=== PATIENT | female | born 1930 | race African-American/Black ===

== ENCOUNTER 2019-06-07 00:11 | Emergency (ER) | payer MEDICARE ==
[~2019-06-07] VITALS: Ht 157.5 cm; Wt 74.8 kg
[~2019-06-07 00:11] MED LIST: BIMA2.5D OP; CLON0.5T20 PO; FAMO20TA5 PO; HYDR12.575 PO; HYDR1TAB20 PO; TIMO5SOL10 OP; URSO300C26 PO
[2019-06-07 00:37] LABS: BILIRUBIN,URINE NEGATIVE (NEG); CLARITY,URINE CLOUDY; COLOR,URINE YELLOW; NITRITE,URINE NEGATIVE (NEG); PH,URINE 5.5; PROTEIN,URINE 100 mg/dL (NEG-TRACE); UROBILINOGEN,URINE 0.2 mg/dL (0.2 mg/dL)
[2019-06-07 00:41] LABS: RBC,URINE OCC /HPF (0-2)
[2019-06-07 00:42] LABS: BACTERIA,URINE MANY /HPF (0-FEW); HYALINE CASTS, URINE FEW /HPF; SQUAMOUS EPITHELIAL CELL,UR MANY /LPF; WBC,URINE TNTC /HPF (0-4)
[2019-06-07 00:48] LABS: BASO % 1 % (0-3); EOS # 0.1 x10^3/uL (0.0-0.7); EOS % 3 % (0-3); HEMATOCRIT 37.1 % (36.0-47.0); HEMOGLOBIN 12.4 g/dL (12.0-15.5); LYMPH # 0.6 x10^3/uL (1.0-4.8); LYMPH % 12 % (24-48); MEAN CORPUSCULAR HEMOGLOBIN 31 pg (25-35); MEAN CORPUSCULAR HGB CONC 33 g/dL (31-37); MEAN CORPUSCULAR VOLUME 92 fL (79-100); MONO # 0.5 x10^3/uL (0.0-1.1); MONO % 11 % (0-9); NEUT # 3.5 x10^3/uL (1.8-7.7); NEUT % 73 % (31-73); PLATELET COUNT 219 x10^3/uL (140-400); RED BLOOD COUNT 4.05 x10^6/uL (3.50-5.40); RED CELL DISTRIBUTION WIDTH 14.1 % (11.5-14.5); WHITE BLOOD COUNT 4.8 x10^3/uL (4.0-11.0)
--- NOTE | 2019-06-07 00:56 | PHYS DOC ---
Past Medical History Past Medical History: Cancer, Hypertension Additional Past Medical Histor: COLON CA Past Surgical History: Colectomy Additional Past Surgical Histo: INTESTIONAL MESH Additional Information: Nonsmoker Alcohol Use: None Drug Use: None Adult General Chief Complaint Chief Complaint: ABDOMINAL PAIN HPI HPI 88 y/o female presents with history of intermittent epigastric pain and nausea x 2 days. Reports has had similar episodes in the past which typically "go away". Denies fever/chills. Denies trauma. Review of Systems Review of Systems Constitutional: Denies fever or chills Eyes: Denies redness or eye pain HENT: Denies nasal congestion or sore throat Respiratory: Denies cough or shortness of breath Cardiovascular: Denies chest pain or palpitations GI: Reports abdominal pain and nausea; denies vomiting : Denies dysuria or hematuria Musculoskeletal: Denies back pain or joint pain Integument: Denies rash or skin lesions Neurologic: Denies headache, focal weakness or sensory changes Complete systems were reviewed and found to be within normal limits, except as documented in this note. Current Medications Current Medications Current Medications Medications (Trade) Dose Ordered Sig/Gustavo Start Time Stop Time Status Last Admin Dose Admin Ceftriaxone Sodium (Rocephin) 1 gm 1X ONCE 06/07/19 03:00 06/07/19 03:01 DC 06/07/19 02:43 1 GM Famotidine (Pepcid Vial) 20 mg 1X ONCE 06/07/19 01:00 06/07/19 01:01 DC 06/07/19 00:48 20 MG Ondansetron HCl (Zofran) 4 mg 1X ONCE 06/07/19 01:00 06/07/19 01:01 DC 06/07/19 00:48 4 MG Sodium Chloride 1,000 ml @ 1,000 mls/hr 1X ONCE 06/07/19 01:00 06/07/19 01:59 DC 06/07/19 00:48 1,000 MLS/HR Allergies Allergies Allergies Coded Allergies Type Severity Reaction Last Updated Verified iodine Allergy Intermediate Itching 07/26/13 Yes Physical Exam Physical Exam Constitutional: Well developed, well nourished, no acute distress, non-toxic appearance HENT: Normocephalic, atraumatic, oropharynx moist Eyes: Conjunctiva normal, no discharge Neck: Normal range of motion, no tenderness, supple Cardiovascular: Heart rate normal, regular rhythm Lungs & Thorax: Bilateral breath sounds clear to auscultation, no wheezing Abdomen: Soft, mild epigastric tenderness Skin: Warm, dry, no erythema, no rash Back: No tenderness, no CVA tenderness Extremities: No tenderness, ROM intact, no edema Neurologic: Alert and oriented X 3, normal motor function, normal sensory function, no focal deficits noted Psychologic: Affect normal, judgement normal, mood normal Current Patient Data Vital Signs Vital Signs Date Time Temp Pulse Resp B/P (MAP) Pulse Ox O2 Delivery O2 Flow Rate FiO2 06/07/19 02:44 68 16 166/82 (110) 95 Room Air 06/07/19 00:14 97.7 97.7 Lab Values Laboratory Tests Test 06/07/19 00:05 06/07/19 00:17 06/07/19 01:35 White Blood Count 4.8 x10^3/uL (4.0-11.0) Red Blood Count 4.05 x10^6/uL (3.50-5.40) Hemoglobin 12.4 g/dL (12.0-15.5) Hematocrit 37.1 % (36.0-47.0) Mean Corpuscular Volume 92 fL (79-100) Mean Corpuscular Hemoglobin 31 pg (25-35) Mean Corpuscular Hemoglobin Concent 33 g/dL (31-37) Red Cell Distribution Width 14.1 % (11.5-14.5) Platelet Count 219 x10^3/uL (140-400) Neutrophils (%) (Auto) 73 % (31-73) Lymphocytes (%) (Auto) 12 % (24-48) L Monocytes (%) (Auto) 11 % (0-9) H Eosinophils (%) (Auto) 3 % (0-3) Basophils (%) (Auto) 1 % (0-3) Neutrophils # (Auto) 3.5 x10^3/uL (1.8-7.7) Lymphocytes # (Auto) 0.6 x10^3/uL (1.0-4.8) L Monocytes # (Auto) 0.5 x10^3/uL (0.0-1.1) Eosinophils # (Auto) 0.1 x10^3/uL (0.0-0.7) Basophils # (Auto) 0.0 x10^3/uL (0.0-0.2) Prothrombin Time 13.1 SEC (11.7-14.0) Prothrombin Time INR 1.0 (0.8-1.1) Activated Partial Thromboplast Time 26 SEC (24-38) Lactic Acid Level 1.2 mmol/L (0.4-2.0) Urine Collection Type Unknown Urine Color Yellow Urine Clarity Cloudy Urine pH 5.5 Urine Specific Bent 1.020 Urine Protein 100 mg/dL (NEG-TRACE) Urine Glucose (UA) Negative mg/dL (NEG) Urine Ketones (Stick) Negative mg/dL (NEG) Urine Blood Large (NEG) Urine Nitrite Negative (NEG) Urine Bilirubin Negative (NEG) Urine Urobilinogen Dipstick 0.2 mg/dL (0.2 mg/dL) Urine Leukocyte Esterase Large (NEG) Urine RBC Occ /HPF (0-2) Urine WBC Tntc /HPF (0-4) Urine Squamous Epithelial Cells Many /LPF Urine Bacteria Many /HPF (0-FEW) Urine Hyaline Casts Few /HPF Urine Mucus Mod /LPF Sodium Level 141 mmol/L (136-145) Potassium Level 3.7 mmol/L (3.5-5.1) Chloride Level 108 mmol/L (98-107) H Carbon Dioxide Level 23 mmol/L (21-32) Anion Gap 10 (6-14) Blood Urea Nitrogen 15 mg/dL (7-20) Creatinine 1.0 mg/dL (0.6-1.0) Estimated GFR (Cockcroft-Gault) 63.5 BUN/Creatinine Ratio 15 (6-20) Glucose Level 101 mg/dL (70-99) H Calcium Level 8.6 mg/dL (8.5-10.1) Magnesium Level 1.8 mg/dL (1.8-2.4) Total Bilirubin 0.3 mg/dL (0.2-1.0) Aspartate Amino Transferase (AST) 18 U/L (15-37) Alanine Aminotransferase (ALT) 16 U/L (14-59) Alkaline Phosphatase 81 U/L (46-116) Creatine Kinase 94 U/L (26-192) Creatine Kinase MB (Mass) 1.0 ng/mL (0.0-3.6) Creatine Kinase MB Relative Index 1.1 % (0-4) Troponin I Quantitative < 0.017 ng/mL (0.000-0.055) Total Protein 7.5 g/dL (6.4-8.2) Albumin 2.9 g/dL (3.4-5.0) L Albumin/Globulin Ratio 0.6 (1.0-1.7) L Lipase 117 U/L (73-393) Laboratory Tests 06/07/19 00:05 Laboratory Tests 06/07/19 01:35 EKG EKG @0056 NSR at 66bpm with arrhythmia, NO ST elevation, baseline artifact Radiology/Procedures Radiology/Procedures PROCEDURE: CT ABDOMEN PELVIS WO CONTRAST Abdominal and Pelvis CT, Without Contrast: History: Epigastric pain nausea and vomiting Comparison: None. Procedure: Axial images are obtained of the abdomen and pelvis, without IV or oral contrast. Oral Contrast: No Findings: Evaluation of solid organs is limited without contrast. Evaluation of stomach and bowel is limited without oral contrast. There are stones the gallbladder without wall thickening or surrounding inflammation. 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 Spleen: Normal. Pancreas: Normal. Adrenal Glands: Normal. Kidneys: Normal. There is no free air or free fluid. There is no lymphadenopathy. The urinary bladder is collapsed. There is no pericolonic inflammation identified. Impression: Cholelithiasis without evidence of acute cholecystitis. No acute findings. End impression PQRS Compliance Statement: One or more of the following individualized dose reduction techniques were utilized for this examination: 1. Automated exposure control 2. Adjustment of the mA and/or kV according to patient size 3. Use of iterative reconstruction technique Electronically signed by: Jamarcus Bender III, MD (06/07/2019 1:28 AM) [facility] Course & Med Decision Making Course & Med Decision Making Pertinent Labs and Imaging studies reviewed. (See chart for details) Patient presents with report of epigastric pain which has been worse over the last 2 days but of which patient has had similar episodes over the last 2 years. Symptomatic treatment provided. Labs obtained and posted to chart. UA with signs of infection. Empiric antibiotics given. EKG stable. CT abd/pelvis with cholelithiasis noted. Patient stable for discharge with outpatient follow-up with PCP/GI. GI referral provided. Discussed findings and plan with patient and family, who acknowledge understanding and agreement. Dragon Disclaimer Dragon Disclaimer This electronic medical record was generated, in whole or in part, using a voice recognition dictation system. Departure Departure Impression: Primary Impression: Epigastric abdominal pain Additional Impressions: Cholelithiasis UTI (urinary tract infection) Disposition: 01 HOME, SELF-CARE Condition: STABLE Referrals: REECE CHILDERS (PCP) CARLOS LECHUGA MD Patient Instructions: Abdominal Pain, [id number], Cholelithiasis, Ea sy-to-Read, Urinary Tract Infection, [id number] Scripts Ondansetron (ONDANSETRON ODT) 4 Mg Tab.rapdis 1 TAB PO PRN Q6-8HRS PRN for NAUSEA, #16 TAB Prov: COTY MATAT DO 06/07/19 Cephalexin (KEFLEX) 500 Mg Capsule 500 MG PO TID for 7 Days, #21 CAP Prov: COTY MATTA DO 06/07/19 Problem Qualifiers Additional Impressions: Cholelithiasis Cholelithiasis location: gallbladder Cholecystitis presence: without cholecystitis Biliary obstruction: without biliary obstruction Qualified Codes: K80.20 - Calculus of gallbladder without cholecystitis without obstruction UTI (urinary tract infection) Urinary tract infection type: acute cystitis Hematuria presence: without hematuria Qualified Codes: N30.00 - Acute cystitis without hematuria COTY MATTA DO Jun 07, 2019 00:56
[2019-06-07 00:58] LABS: PROTHROMBIN TIME PATIENT 13.1 SEC (11.7-14.0)
[2019-06-07] MEDS ORDERED: ONDANSETRON PF 4 MG/2 ML VIAL. IV ONE (01:00)
[2019-06-07] MEDS ORDERED: IV NORMAL SALINE 1000ML BAG 1,000 ML IV ONE (01:00)
[2019-06-07] MEDS ORDERED: FAMOTIDINE 20 MG/2 ML VIAL IVP ONE (01:00)
--- NOTE | 2019-06-07 01:31 | RAD ---
Abdominal and Pelvis CT, Without Contrast: History: Epigastric pain nausea and vomiting Comparison: None. Procedure: Axial images are obtained of the abdomen and pelvis, without IV or oral contrast. Oral Contrast: No Findings: Evaluation of solid organs is limited without contrast. Evaluation of stomach and bowel is limited without oral contrast. There are stones the gallbladder without wall thickening or surrounding inflammation. 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 Spleen: Normal. Pancreas: Normal. Adrenal Glands: Normal. Kidneys: Normal. There is no free air or free fluid. There is no lymphadenopathy. The urinary bladder is collapsed. There is no pericolonic inflammation identified. Impression: Cholelithiasis without evidence of acute cholecystitis. No acute findings. End impression PQRS Compliance Statement: One or more of the following individualized dose reduction techniques were utilized for this examination: 1. Automated exposure control 2. Adjustment of the mA and/or kV according to patient size 3. Use of iterative reconstruction technique Electronically signed by: Jamarcus Bender III, MD (06/07/2019 1:28 AM) [facility]
[2019-06-07 01:55] LABS: CALCIUM 8.6 mg/dL (8.5-10.1); GFR 63.5; POTASSIUM 3.7 mmol/L (3.5-5.1)
[2019-06-07 02:01] LABS: ALBUMIN 2.9 g/dL (3.4-5.0); ALBUMIN/GLOBULIN RATIO 0.6 (1.0-1.7); MAGNESIUM 1.8 mg/dL (1.8-2.4); TOTAL BILIRUBIN 0.3 mg/dL (0.2-1.0); TOTAL PROTEIN 7.5 g/dL (6.4-8.2)
[2019-06-07] MEDS ORDERED: CEPH-264 PO (02:39)
[2019-06-07] MEDS ORDERED: ONDA4TAB12 PO (02:39)
[2019-06-07 02:44] VITALS: BP 166/82
[2019-06-07] MEDS ORDERED: cefTRIAXone IV Push 1 GM VIAL. IVP ONE (03:00)
--- NOTE | 2019-06-07 08:00 | EKG ---
[facility] [address] [place] [address] Test Date: 2019-06-07 Test Time: 00:56:41 Pat Name: ROSE DU Department: Room: Gender: F Beater Head: : 1930 Requested By: COTY MATTA Order Number: [id number] Reading MD: Demetrio Fraire MD Measurements Intervals [place] Rate: 66 P: NV: QRS: -43 QRSD: 118 T: 19 QT: 450 QTc: 474 Interpretive Statements SR RBBB NON-SPECIFIC ST/T CHANGES Electronically Signed On 06-21-2019 9:24:41 [employer] by Demetrio Fraire MD
== END 2019-06-07 02:51 | disposition home or self-care (01) ==
LOC: ER 00:11
DX: K80.20 Calculus of gallbladder without cholecystitis without obstruction (principal); N30.00 Acute cystitis without hematuria; I10 Essential (primary) hypertension; Z90.49 Acquired absence of other specified parts of digestive tract; Z85.038 Personal history of other malignant neoplasm of large intestine
CPT/HCPCS: 36415; 74176; 80053; 81001; 82553; 83605; 83690; 83735; 84484; 85025; 85610; 85730; 87086; 93005; 96374; 96375; 99285; J0696; J2405; J3490; J7030

== ENCOUNTER 2019-09-21 17:28 | Emergency (ER) | payer MEDICARE ==
[~2019-09-21] VITALS: Ht 157.5 cm; Wt 75.0 kg
[~2019-09-21 17:28] MED LIST changes: +CEPH-264 PO; +ONDA4TAB12 PO
--- NOTE | 2019-09-21 20:43 | RAD ---
AP chest. HISTORY: Hypertension AP portable view was taken of the chest. Heart is normal in size. The aorta is tortuous. There are no confluent infiltrates. There is arthritis in both shoulders. IMPRESSION: 1. No acute chest disease. Electronically signed by: Koko Briones MD (09/21/2019 8:40 PM) [id number]
[2019-09-21 21:30] LABS: BASO % 1 % (0-3); EOS # 0.1 x10^3/uL (0.0-0.7); EOS % 2 % (0-3); HEMATOCRIT 37.6 % (36.0-47.0); HEMOGLOBIN 12.1 g/dL (12.0-15.5); LYMPH # 0.6 x10^3/uL (1.0-4.8); LYMPH % 12 % (24-48); MEAN CORPUSCULAR HEMOGLOBIN 31 pg (25-35); MEAN CORPUSCULAR HGB CONC 32 g/dL (31-37); MEAN CORPUSCULAR VOLUME 95 fL (79-100); MONO # 0.6 x10^3/uL (0.0-1.1); MONO % 12 % (0-9); NEUT # 3.5 x10^3/uL (1.8-7.7); NEUT % 74 % (31-73); PLATELET COUNT 215 x10^3/uL (140-400); RED BLOOD COUNT 3.96 x10^6/uL (3.50-5.40); RED CELL DISTRIBUTION WIDTH 14.1 % (11.5-14.5); WHITE BLOOD COUNT 4.8 x10^3/uL (4.0-11.0)
--- NOTE | 2019-09-21 21:31 | PHYS DOC ---
Past Medical History Past Medical History: Hypertension Additional Past Medical Histor: COLON CA Past Surgical History: Cancer Surgery Additional Past Surgical Histo: INTESTIONAL MESH, COLOSTOMY, Smoking Status: Never Smoker Alcohol Use: None Drug Use: None Adult General Chief Complaint Chief Complaint: HYPERTENSION HPI HPI Patient is a 89 year old Female who presents with a history of high blood pressure and states that recently her blood pressures been running higher than usual. She states that she takes her lisinopril 2.5 mg but her blood pressure began running high. She states she went to [facility] to have teeth pulled they would not pull her teeth because her blood pressure was high. She states that her doctor told her to take a second lisinopril. She took that at 1600 today. Patient states that times her left cheek will "feel funny". She also states that she does have a headache right at the top of her head that states that she is very mild and rates her pain an 8 out of 10. Patient denies chest pain, nausea, vomiting, dizziness, visual changes, numbness or tingling, shortness of breath, abdominal pain, weakness, fever, dysuria. Review of Systems Review of Systems Neurologic: headache, denies focal weakness or sensory changes [] All other systems were reviewed and found to be within normal limits, except as documented in this note. Allergies Allergies Allergies Coded Allergies Type Severity Reaction Last Updated Verified iodine Allergy Intermediate Itching 07/26/13 Yes Physical Exam Physical Exam Constitutional: Well developed, well nourished, no acute distress, non-toxic appearance. [] HENT: Normocephalic, atraumatic, bilateral external ears normal, oropharynx moist, no oral exudates, nose normal. [] Eyes: PERRLA, EOMI, conjunctiva normal, no discharge. [] Neck: Normal range of motion, no tenderness, supple, no stridor. [] Cardiovascular:Heart rate regular rhythm, no murmur [] Lungs & Thorax: Bilateral breath sounds clear to auscultation [] Abdomen: Bowel sounds normal, soft, no tenderness, no masses, no pulsatile masses. [] Skin: Warm, dry, no erythema, no rash. [] Back: No tenderness, no CVA tenderness. [] Extremities: No tenderness, no cyanosis, no clubbing, ROM intact, no edema. [] Neurologic: Alert and oriented X 3, normal motor function, normal sensory function, no focal deficits noted. [] Psychologic: Affect normal, judgement normal, mood normal. Normal Physical Exam[] Current Patient Data Vital Signs Vital Signs Date Time Temp Pulse Resp B/P (MAP) Pulse Ox O2 Delivery O2 Flow Rate FiO2 09/21/19 19:43 97.9 67 20 187/95 (125) Room Air 97.9 09/21/19 18:36 96.0 Lab Values Laboratory Tests Test 09/21/19 21:22 White Blood Count 4.8 x10^3/uL (4.0-11.0) Red Blood Count 3.96 x10^6/uL (3.50-5.40) Hemoglobin 12.1 g/dL (12.0-15.5) Hematocrit 37.6 % (36.0-47.0) Mean Corpuscular Volume 95 fL (79-100) Mean Corpuscular Hemoglobin 31 pg (25-35) Mean Corpuscular Hemoglobin Concent 32 g/dL (31-37) Red Cell Distribution Width 14.1 % (11.5-14.5) Platelet Count 215 x10^3/uL (140-400) Neutrophils (%) (Auto) 74 % (31-73) H Lymphocytes (%) (Auto) 12 % (24-48) L Monocytes (%) (Auto) 12 % (0-9) H Eosinophils (%) (Auto) 2 % (0-3) Basophils (%) (Auto) 1 % (0-3) Neutrophils # (Auto) 3.5 x10^3/uL (1.8-7.7) Lymphocytes # (Auto) 0.6 x10^3/uL (1.0-4.8) L Monocytes # (Auto) 0.6 x10^3/uL (0.0-1.1) Eosinophils # (Auto) 0.1 x10^3/uL (0.0-0.7) Basophils # (Auto) 0.0 x10^3/uL (0.0-0.2) Sodium Level 141 mmol/L (136-145) Potassium Level 3.4 mmol/L (3.5-5.1) L Chloride Level 106 mmol/L (98-107) Carbon Dioxide Level 28 mmol/L (21-32) Anion Gap 7 (6-14) Blood Urea Nitrogen 16 mg/dL (7-20) Creatinine 1.2 mg/dL (0.6-1.0) H Estimated GFR (Cockcroft-Gault) 51.3 BUN/Creatinine Ratio 13 (6-20) Glucose Level 114 mg/dL (70-99) H Calcium Level 9.2 mg/dL (8.5-10.1) Total Bilirubin 0.3 mg/dL (0.2-1.0) Aspartate Amino Transferase (AST) 19 U/L (15-37) Alanine Aminotransferase (ALT) 19 U/L (14-59) Alkaline Phosphatase 93 U/L (46-116) Troponin I Quantitative < 0.017 ng/mL (0.000-0.055) CJ-Ihy-Z-Type Natriuretic Peptide 596 pg/mL (0-449) H Total Protein 7.8 g/dL (6.4-8.2) Albumin 3.4 g/dL (3.4-5.0) Albumin/Globulin Ratio 0.8 (1.0-1.7) L Laboratory Tests 09/21/19 21:22 Laboratory Tests 09/21/19 21:22 EKG EKG Sinus rhythm and no STEMI[] Interpretation Time: [address] Parikh Radiology/Procedures Radiology/Procedures [] Impressions: [address] [address] IMAGING REPORT Signed PATIENT: ROSE DU ACCOUNT: [id number] : 1930 LOCATION: ER AGE: 89 SEX: F EXAM STATUS: REG ER ORD. PHYSICIAN: QUEENIE LO APRN REASON: hypertension PROCEDURE: PORTABLE CHEST 1V AP chest. HISTORY: Hypertension AP portable view was taken of the chest. Heart is normal in size. The aorta is tortuous. There are no confluent infiltrates. There is arthritis in both shoulders. IMPRESSION: 1. No acute chest disease. Electronically signed by: Koko Briones MD (09/21/2019 8:40 PM) [id number] DICTATED and SIGNED BY: KOKO BRIONES MD DATE: 09/21/192039 [address] [place] [address] IMAGING REPORT Signed PATIENT: ROSE DU ACCOUNT: [id number] : 1930 LOCATION: ER AGE: 89 SEX: F EXAM STATUS: REG ER ORD. PHYSICIAN: QUEENIE LO APRN REASON: HEADACHE. hx colon ca PROCEDURE: CT HEAD WO CONTRAST Exam: CT head INDICATION: Headache TECHNIQUE: Sequential axial images through the head were obtained without the administration of IV contrast. Comparisons: None FINDINGS: No focal parenchymal lesion or hemorrhage is identified. There is no midline shift or sulcal effacement. No acute vascular territory infarction is identified. Jean-white distinction is preserved. The ventricular system is within normal limits without compression hydrocephalus. The basal cisterns are well maintained. The visualized portions of the paranasal sinuses and mastoid air cells are well-pneumatized. No acute fractures. IMPRESSION: No acute intracranial abnormality. Exposure: One or more of the following in the visualized dose reduction techniques were utilized for this examination: 1. Automated exposure control 2. Adjustment of the MA and/or KV according to patient size Use of iterative of reconstructive technique Electronically signed by: Ahsan Simental MD (09/21/2019 10:01 PM) [id number] DICTATED and SIGNED BY: AHSAN SIMENTAL MD DATE: 09/21/192200 Course & Med Decision Making Course & Med Decision Making Pertinent Labs and Imaging studies reviewed. (See chart for details) PERRLA. Alert and oriented. Speaks in full clear sentences. Ambulatory with a steady gait. Skin pink warm and dry. Patient's blood pressures are in the 180s over 80s. No extremity swelling. Lungs are clear to auscultation all lobes. Chest x-ray shows no acute findings. EKG shows sinus rhythm and no STEMI. 2129: Patient's blood pressure has come down to 135/86 without medication. Patient states that her headache is completely gone and she feels fine. Patient discharged home and to call her doctor in the morning for follow-up and changes in her blood pressure medications. [] Dragon Disclaimer Dragon Disclaimer This electronic medical record was generated, in whole or in part, using a voice recognition dictation system. NIHSS Stroke Scale NIH Stroke Scale: NIH Stroke Scale Response (Comments) Value Level of Consciousness: 0 Alert/Responsive 0 LOC Questions: 0 Answers both correctly 0 LOC Commands: 0 Performs both tasks 0 Best Gaze: 0 Normal 0 Visual: 0 No visual loss 0 Facial Palsy: 0 Normal, symmetrical 0 Motor - Left Arm 0 No drift 0 Motor - Right Arm 0 No drift 0 Motor - Left Leg 0 No drift 0 Motor: Right Leg 0 No drift 0 Limb Ataxia: 0 Absent 0 Sensory: 0 No loss 0 Best Language: 0 Normal 0 Dysathria: 0 Normal 0 Extinction and Inattention: 0 Normal 0 Total 0 Departure Departure Impression: Primary Impression: Hypertension Disposition: 01 HOME, SELF-CARE Condition: STABLE Referrals: ARETHA STINSON D.O. (PCP) Patient Instructions: Hypertension Additional Instructions: Call your doctor in the morning for a follow-up appointment. Problem Qualifiers Primary Impression: Hypertension Hypertension type: essential hypertension Qualified Codes: I10 - Essential (primary) hypertension QUEENIE LO APRN Sep 21, 2019 21:31
[2019-09-21 21:41] LABS: CALCIUM 9.2 mg/dL (8.5-10.1); CREATININE 1.2 mg/dL (0.6-1.0); GFR 51.3; POTASSIUM 3.4 mmol/L (3.5-5.1)
[2019-09-21 21:47] LABS: ALBUMIN 3.4 g/dL (3.4-5.0); ALBUMIN/GLOBULIN RATIO 0.8 (1.0-1.7); TOTAL BILIRUBIN 0.3 mg/dL (0.2-1.0); TOTAL PROTEIN 7.8 g/dL (6.4-8.2)
--- NOTE | 2019-09-21 22:04 | RAD ---
Exam: CT head INDICATION: Headache TECHNIQUE: Sequential axial images through the head were obtained without the administration of IV contrast. Comparisons: None FINDINGS: No focal parenchymal lesion or hemorrhage is identified. There is no midline shift or sulcal effacement. No acute vascular territory infarction is identified. Jean-white distinction is preserved. The ventricular system is within normal limits without compression hydrocephalus. The basal cisterns are well maintained. The visualized portions of the paranasal sinuses and mastoid air cells are well-pneumatized. No acute fractures. IMPRESSION: No acute intracranial abnormality. Exposure: One or more of the following in the visualized dose reduction techniques were utilized for this examination: 1. Automated exposure control 2. Adjustment of the MA and/or KV according to patient size Use of iterative of reconstructive technique Electronically signed by: Ahsan Sullivan MD (09/21/2019 10:01 PM) [id number]
[2019-09-21 22:47] VITALS: BP 132/68
--- NOTE | 2019-09-22 10:07 | EKG ---
[facility] [address] [place] [address] Test Date: 2019-09-21 Test Time: 20:57:59 Pat Name: ROSE DU Department: Room: Gender: F [employer]airer: : 1930 Requested By: QUEENIE LO Order Number: [id number] Reading MD: Measurements Intervals [place] Rate: 67 P: 1 [place]: 158 QRS: -62 QRSD: 120 T: 2 QT: 424 QTc: 451 Interpretive Statements SINUS RHYTHM ABNORMAL LEFT AXIS DEVIATION R-S TRANSITION ZONE IN V LEADS DISPLACED TO THE RIGHT ABNORMAL ECG RI6.01 No previous ECG available for comparison
== END 2019-09-21 23:20 | disposition home or self-care (01) ==
LOC: ER 17:28
DX: I10 Essential (primary) hypertension (principal); Z85.038 Personal history of other malignant neoplasm of large intestine; Z93.3 Colostomy status; Z88.8 Allergy status to other drugs, medicaments and biological substances
CPT/HCPCS: 36415; 70450; 71045; 80053; 83880; 84484; 85025; 93005; 99285-25

== ENCOUNTER 2019-12-25 10:04 | Emergency (ER) | payer MEDICARE ==
[~2019-12-25] VITALS: Ht 152.4 cm; Wt 79.0 kg
[~2019-12-25 10:04] MED LIST changes: +ACET1TAB33 PO; +ALPR0.5T6 PO; +AMLO5TAB10 PO; +AMLO5TAB4 PO; +ASPI-630 PO; +BIMA2.5D EACHEYE; +CIME300S4 PO; +CLON0.1T PO; +LOSA-73 PO; +METO25TA4 PO; +MONT10TA49 PO; +SERT50TA PO; +TIMO10DR5 EACHEYE
[2019-12-25 10:35] LABS: BASO % 0 % (0-3); EOS % 0 % (0-3); HEMATOCRIT 39.8 % (36.0-47.0); HEMOGLOBIN 13.1 g/dL (12.0-15.5); LYMPH # 0.4 x10^3/uL (1.0-4.8); LYMPH % 4 % (24-48); MEAN CORPUSCULAR HEMOGLOBIN 30 pg (25-35); MEAN CORPUSCULAR HGB CONC 33 g/dL (31-37); MEAN CORPUSCULAR VOLUME 92 fL (79-100); MONO # 0.6 x10^3/uL (0.0-1.1); MONO % 6 % (0-9); NEUT # 9.8 x10^3/uL (1.8-7.7); NEUT % 90 % (31-73); PLATELET COUNT 161 x10^3/uL (140-400); RED BLOOD COUNT 4.31 x10^6/uL (3.50-5.40); RED CELL DISTRIBUTION WIDTH 14.4 % (11.5-14.5); WHITE BLOOD COUNT 10.9 x10^3/uL (4.0-11.0)
[2019-12-25 10:45] LABS: CALCIUM 8.5 mg/dL (8.5-10.1); GFR 63.3; POTASSIUM 3.1 mmol/L (3.5-5.1)
[2019-12-25] MEDS ORDERED: BENZTROPINE MESYLATE 2 MG/2 ML VIAL. IV ONE (10:45)
[2019-12-25 10:50] LABS: ALBUMIN 2.8 g/dL (3.4-5.0); ALBUMIN/GLOBULIN RATIO 0.7 (1.0-1.7); MAGNESIUM 1.8 mg/dL (1.8-2.4); TOTAL BILIRUBIN 0.3 mg/dL (0.2-1.0); TOTAL PROTEIN 7.1 g/dL (6.4-8.2)
[2019-12-25] MEDS ORDERED: IV NORMAL SALINE 1000ML BAG 1,000 ML IV ONE (11:00)
[2019-12-25 11:23] LABS: % BANDS 1 % (0-9); % LYMPHS 4 % (24-48); % MONOS 1 % (0-10); % SEGS 94 % (35-66); PLT ESTIMATE ADEQUATE (ADEQUATE)
--- NOTE | 2019-12-25 12:39 | RAD ---
AP chest. HISTORY: Short of air AP view was taken of the chest. Patient rotated to the right. There is arthritis in the shoulders especially on the right. The aorta is normal in size. There is a pacemaker on the left with atrial and ventricular pacing leads without change. There is mild hazy atelectasis or infiltrate at the right costophrenic angle. No other infiltrates are noted. IMPRESSION: 1. Mild hazy atelectasis or infiltrate at the right costophrenic angle. 2. No other acute infiltrates. Electronically signed by: Koko Briones MD (12/25/2019 12:36 PM) [id number]
[2019-12-25 12:59] LABS: BILIRUBIN,URINE NEGATIVE (NEG); CLARITY,URINE CLEAR; COLOR,URINE YELLOW; NITRITE,URINE NEGATIVE (NEG); PROTEIN,URINE 30 mg/dL (NEG-TRACE); UROBILINOGEN,URINE 0.2 mg/dL (0.2 mg/dL)
[2019-12-25 13:04] LABS: BACTERIA,URINE 0 /HPF (0-FEW); HYALINE CASTS, URINE FEW /HPF; RBC,URINE OCC /HPF (0-2); SQUAMOUS EPITHELIAL CELL,UR OCC /LPF; WBC,URINE 0 /HPF (0-4)
[2019-12-25] MEDS ORDERED: BENZ1TAB5 PO (15:00)
--- NOTE | 2019-12-25 15:00 | PHYS DOC ---
Past Medical History Past Medical History: Anxiety, Depression, Hypertension Additional Past Medical Histor: COLON CA Past Surgical History: Cancer Surgery Additional Past Surgical Histo: INTESTIONAL MESH, COLOSTOMY, defib placed 09/30 Smoking Status: Never Smoker Alcohol Use: None Drug Use: None General Adult EDM: Chief Complaint: ALTERED MENTAL STATUS HPI: HPI: Patient is a 89 year old female who was brought here from [facility] due to altered mental status while constantly yelling and shaking. Patient was just discharged from this hospital after she was admitted for pacemaker placement. She was sent there last night. Patient is supposed to be on blood pressure mediation and xanax. Not sure if she was given her morning medication. It was reported that when she was received at the [facility], she was already moaning and shaking. She did not stop moaning and skaking this morning so they called EMS to send her back here. Review of Systems: Review of Systems: not able to obtain due to patient's condition. Heart Score: Risk Factors: Risk Factors: DM, Current or recent (<one month) smoker, HTN, HLP, family history of CAD, obesity. Risk Scores: Score 0 - 3: 2.5% MACE over next 6 weeks - Discharge Home Score 4 - 6: 20.3% MACE over next 6 weeks - Admit for Clinical Observation Score 7 - 10: 72.7% MACE over next 6 weeks - Early Invasive Strategies Current Medications: Current Medications Medications (Trade) Dose Ordered Sig/Gustavo Start Time Stop Time Status Last Admin Dose Admin Benztropine Mesylate (Cogentin) 2 mg 1X ONCE 12/25/19 10:45 12/25/19 10:46 DC 12/25/19 10:31 2 MG Sodium Chloride 1,000 ml @ 1,000 mls/hr 1X ONCE 12/25/19 11:00 12/25/19 11:59 DC 12/25/19 11:01 1,000 MLS/HR Allergies: Allergies: Allergies Coded Allergies Type Severity Reaction Last Updated Verified iodine Allergy Intermediate Itching 07/26/13 Yes Physical Exam: PE: Constitutional: Well developed, well nourished, mild acute distress, non-toxic appearance. [] HENT: Normocephalic, atraumatic, bilateral external ears normal, oropharynx is very dried, tongue is very dried, nose normal. [] Eyes: PERRLA, EOMI, conjunctiva normal, no discharge. [] Neck: Normal range of motion, no tenderness, supple, no stridor. [] Cardiovascular: sinus tachycardia, regular rhythm, no murmur [] Lungs & Thorax: Bilateral breath sounds clear to auscultation [] Abdomen: Bowel sounds normal, soft, no tenderness, no masses, no pulsatile masses. [] Skin: Warm, dry, no erythema, no rash. [] Back: No tenderness, no CVA tenderness. [] Extremities: No tenderness, no cyanosis, no clubbing, ROM intact, no edema. [] Neurologic: Alert, constant rolling her lips, shaking her her legs and her hands. ] Psychologic: anxious, constantly chanting.... Current Patient Data: Labs: Laboratory Tests Test 12/25/19 10:20 12/25/19 12:39 White Blood Count 10.9 x10^3/uL (4.0-11.0) Red Blood Count 4.31 x10^6/uL (3.50-5.40) Hemoglobin 13.1 g/dL (12.0-15.5) Hematocrit 39.8 % (36.0-47.0) Mean Corpuscular Volume 92 fL (79-100) Mean Corpuscular Hemoglobin 30 pg (25-35) Mean Corpuscular Hemoglobin Concent 33 g/dL (31-37) Red Cell Distribution Width 14.4 % (11.5-14.5) Platelet Count 161 x10^3/uL (140-400) Neutrophils (%) (Auto) 90 % (31-73) H Lymphocytes (%) (Auto) 4 % (24-48) L Monocytes (%) (Auto) 6 % (0-9) Eosinophils (%) (Auto) 0 % (0-3) Basophils (%) (Auto) 0 % (0-3) Neutrophils # (Auto) 9.8 x10^3/uL (1.8-7.7) H Lymphocytes # (Auto) 0.4 x10^3/uL (1.0-4.8) L Monocytes # (Auto) 0.6 x10^3/uL (0.0-1.1) Eosinophils # (Auto) 0.0 x10^3/uL (0.0-0.7) Basophils # (Auto) 0.0 x10^3/uL (0.0-0.2) Segmented Neutrophils % 94 % (35-66) H Band Neutrophils % 1 % (0-9) Lymphocytes % 4 % (24-48) L Monocytes % 1 % (0-10) Platelet Estimate Adequate (ADEQUATE) Sodium Level 146 mmol/L (136-145) H Potassium Level 3.1 mmol/L (3.5-5.1) L Chloride Level 111 mmol/L (98-107) H Carbon Dioxide Level 23 mmol/L (21-32) Anion Gap 12 (6-14) Blood Urea Nitrogen 22 mg/dL (7-20) H Creatinine 1.0 mg/dL (0.6-1.0) Estimated GFR (Cockcroft-Gault) 63.3 BUN/Creatinine Ratio 22 (6-20) H Glucose Level 104 mg/dL (70-99) H Calcium Level 8.5 mg/dL (8.5-10.1) Magnesium Level 1.8 mg/dL (1.8-2.4) Total Bilirubin 0.3 mg/dL (0.2-1.0) Aspartate Amino Transferase (AST) 31 U/L (15-37) Alanine Aminotransferase (ALT) 30 U/L (14-59) Alkaline Phosphatase 82 U/L (46-116) Creatine Kinase 105 U/L (26-192) Troponin I Quantitative 0.174 ng/mL (0.000-0.055) VT-Ijw-W-Type Natriuretic Peptide 1959 pg/mL (0-449) H Total Protein 7.1 g/dL (6.4-8.2) Albumin 2.8 g/dL (3.4-5.0) L Albumin/Globulin Ratio 0.7 (1.0-1.7) L Urine Collection Type Unknown Urine Color Yellow Urine Clarity Clear Urine pH 6.0 (<5.0-8.0) Urine Specific [place] 1.025 (1.000-1.030) Urine Protein 30 mg/dL (NEG-TRACE) Urine Glucose (UA) Negative mg/dL (NEG) Urine Ketones (Stick) Negative mg/dL (NEG) Urine Blood Trace (NEG) Urine Nitrite Negative (NEG) Urine Bilirubin Negative (NEG) Urine Urobilinogen Dipstick 0.2 mg/dL (0.2 mg/dL) Urine Leukocyte Esterase Negative (NEG) Urine RBC Occ /HPF (0-2) Urine WBC 0 /HPF (0-4) Urine Squamous Epithelial Cells Occ /LPF Urine Bacteria 0 /HPF (0-FEW) Urine Hyaline Casts Few /HPF Urine Mucus Slight /LPF Laboratory Tests 12/25/19 10:20 Laboratory Tests 12/25/19 10:20 Vital Signs: Vital Signs Date Time Temp Pulse Resp B/P (MAP) Pulse Ox O2 Delivery O2 Flow Rate FiO2 12/25/19 14:07 96 21 141/89 (106) 99 Room Air 12/25/19 10:05 97.5 97.5 EKG: EKG: EKG WAS DONE AT 1042, HEART RATE OF 96 BPM, NO STEMI, PAC. Radiology/Procedures: Radiology/Procedures: [][facility] [address] [place] [address] IMAGING REPORT Signed PATIENT: ROSE DU ACCOUNT: [id number] : 1930 LOCATION: ER AGE: 89 SEX: F EXAM STATUS: REG ER ORD. PHYSICIAN: HILL BARRETO DO REASON: SOA PROCEDURE: CHEST AP ONLY AP chest. HISTORY: Short of air AP view was taken of the chest. Patient rotated to the right. There is arthritis in the shoulders especially on the right. The aorta is normal in size. There is a pacemaker on the left with atrial and ventricular pacing leads without change. There is mild hazy atelectasis or infiltrate at the right costophrenic angle. No other infiltrates are noted. IMPRESSION: 1. Mild hazy atelectasis or infiltrate at the right costophrenic angle. 2. No other acute infiltrates. Electronically signed by: Koko Briones MD (12/25/2019 12:36 PM) [id number] DICTATED and SIGNED BY: KOKO BRIONES MD DATE: 12/25/19 1236 Course & Med Decision Making: Course & Med Decision Making Pertinent Labs and Imaging studies reviewed. (See chart for details) Patient is an 89-year-old female who was [facility] due to a bnormal behavior. Her condition appears to be a dystonic reaction or an anxiety attack or withdrawing from benzo medication. Patient was found to be severely dehydrated, patient was given 2 mg of Cogentin IV and 1 L normal saline IV. She stopped shaking, became more awake alert, start talking with the nurses. Patient denies any headache, no chest pain, no cough or fever. Discussed with Dr. Cotto, hospitalist who are familiar with her, recommended to send her back to the [facility]. Geo Disclaimer: Dragchemo Disclaimer: This electronic medical record was generated, in whole or in part, using a voice recognition dictation system. Departure Departure Impression: Primary Impression: Dystonia Additional Impressions: Dehydration Anxiety Disposition: HOME, SELF-CARE Condition: IMPROVED Referrals: KAREN WING MD (PCP) Patient Instructions: Anxiety and Panic Attacks, [id number], Dehydration, Adult, Dystonic Reaction Scripts Benztropine Mesylate (BENZTROPINE MESYLATE) 1 Mg Tablet 1 TAB PO BID for DYSTONIC REACTION for 3 Days, #6 TAB Prov: HILL BARRETO DO 12/25/19 HILL BARRETO DO December 25, 2019 15:00
[2019-12-25] MEDS ORDERED: ALPRAZolam 0.5 MG TABLET PO ONE (15:15)
--- NOTE | 2019-12-25 16:03 | PDOC1 ---
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 She was confused throughout her hospital stay at [facility], seen by neurology and psychiatry, had negative MRI, was eventually placed on haldol with stabilization. Given her recently starting haldol she was given cogentin with improvement in ED. Of note nursing staff mentioned she was not in her left shoulder sling and both arms were restrained upon arrival. After cogentin was able to communicate she does not want to be tied down or locked up. EKG WAS DONE AT 1042, HEART RATE OF 96 BPM, NO STEMI, PAC. CXR clear She stopped shaking, became more awake alert, start talking with the nurses. Patient denies any headache, no chest pain, no cough or fever. Asked to leave the hospital. Past Medical History Cardiovascular: HTN Pulmonary: No pertinent hx CENTRAL NERVOUS SYSTEM: Other GI: Constipation, GERD, Other Heme/Onc: Cancer Hepatobiliary: Cholelithiasis Psych: Anxiety Musculoskeletal: Osteoarthritis Past Surgical History Past Surgical History: Colon Resection, Other Social History Smoke: No ALCOHOL: none Drugs: None Current Problem List Problem List Problems Medical Problems: (1) Anxiety Status: Acute (2) Dehydration Status: Acute (3) Dystonia Status: Acute Current Medications Current Medications Current Medications Benztropine Mesylate (Cogentin) 2 mg 1X ONCE IV Last administered on 12/25/19at 10:31; Start 12/25/19 at 10:45; Stop 12/25/19 at 10:46; Status DC Sodium Chloride 1,000 ml @ 1,000 mls/hr 1X ONCE IV Last administered on 12/25/19at 11:01; Start 12/25/19 at 11:00; Stop 12/25/19 at 11:59; Status DC Alprazolam (Xanax) 0.5 mg 1X ONCE PO Last administered on 12/25/19at 15:15; Start 12/25/19 at 15:15; Stop 12/25/19 at 15:16; Status DC Active Scripts Active Benztropine Mesylate 1 Mg Tablet 1 Tab PO BID 3 Days Reported Norvasc (Amlodipine Besylate) 5 Mg Tablet 5 Mg PO DAILY Metoprolol Tartrate 25 Mg Tablet 25 Mg PO BID Lumigan (Bimatoprost) 2.5 Ml Drops 1 Drop EACHEYE QHS Acetaminophen-Cod #3 Tablet (Acetaminophen/Codeine Phosphate) 1 Each Tablet 1 Tab PO PRN QHS PRN Clonidine Hcl 0.1 Mg Tablet 0.1 Mg PO PRN Q12HRS PRN Losartan Potassium 50 Mg Tablet 50 Mg PO HS Montelukast Sodium Tablet (Montelukast Sodium) 10 Mg Tablet 10 Mg PO HS Alprazolam 0.5 Mg Tablet 1-2 Tab PO BID Aspirin 81 Mg Tab.chew 1 Tab PO DAILY Acetaminophen-Cod #3 Tablet (Acetaminophen/Codeine Phosphate) 1 Each Tablet 1 Tab PO DAILY Cimetidine (Cimetidine Hcl) 300 Mg/5 Ml Solution 30 Mg PO DAILY Zoloft (Sertraline Hcl) 50 Mg Tablet 1 Tab PO BID Allergies Allergies: Coded Allergies: iodine (Verified Allergy, Intermediate, Itching, 07/26/13) ROS General: No: Chills, Night Sweats, Fatigue, Malaise, Appetite, Other PSYCHOLOGICAL ROS: YES: Depression; No: Anxiety, Behavioral Disorder, Concentration difficultie, Decreased libido, Disorientation, Hallucinations, Hostility, Irritablity, Memory difficulties, Mood Swings, Obsessive thoughts, Physical abuse, Sexual abuse, Sleep disturbances, Suicidal ideation, Other Eyes: No Blurry vision, No Decreased vision, No Double vision, No Dry eyes, No Excessive tearing, No Eye Pain, No Itchy Eyes, No Loss of vision, No Photophobia, No Scotomata, No Uses contacts, No Uses glasses, No Other HEENT: No: Heacaches, Visual Changes, Hearing change, Nasal congestion, Nasal discharge, Oral lesions, Sinus pain, Sore Throat, Epistaxis, Sneezing, Snoring, Tinnitus, Vertigo, Vocal changes, Other ALLERGY AND IMMUNOLOGY: No: Hives, Insect Bite Sensitivity, Itchy/Watery Eyes, Nasal Congestion, Post Nasal Drip, Seasonal Allergies, Other Hematological and Lymphatic: No: Bleeding Problems, Blood Clots, Blood Transfusions, Brusing, Night Sweats, Pallor, Swollen Lymph Nodes, Other ENDOCRINE: No: Breast Changes, Galactorrhea, Hair Pattern Changes, Hot Flashes, Malaise/lethargy, Mood Swings, Palpitations, Polydipsia/polyuria, Skin Changes, Temperature Intolerance, Unexpected Weight Changes, Other Breast: No New/Changing Breast Lumps, No Nipple changes, No Nipple discharge, No Other Respiratory: No: Cough, Hemoptysis, Orthopnea, Pleuritic Pain, Shortness of breath, SOB with excertion, Sputum Changes, Stridor, Tachypnea, Wheezing, Other Cardiovascular: No Chest Pain, No Palpitations, No Orthopnea, No Paroxysmal Noc. Dyspnea, No Edema, No Lt Headedness, No Other Gastrointestinal: No Nausea, No Vomiting, No Abdominal Pain, No Diarrhea, No Constipation, No Melena, No Hematochezia, No Other Genitourinary: No Dysuria, No Frequency, No Incontinence, No Hematuria, No Retention, No Discharge, No Urgency, No Pain, No Flank Pain, No Other, No , No , No , No , No , No , No Musculoskeletal: No Gait Disturbance, No Joint Pain, No Joint Stiffness, No Joint Swelling, No Muscle Pain, No Muscular Weakness, No Pain In:, No Swelling In:, No Other Neurological: No Behavorial Changes, No Bowel/Bladder ControlChng, No Confusion, No Dizziness, No Gait Disturbance, No Headaches, No Impaired Coord/balance, No Memory Loss, No Numbness/Tingling, No Seizures, No Speech Problems, No Tremors, No Visual Changes, No Weakness, No Other Skin: No Dry Skin, No Eczema, No Hair Changes, No Lumps, No Mole Changes, No Mottling, No Nail Changes, No Pruritus, No Rash, No Skin Lesion Changes, No Other, No Acne Physical Exam General: Alert, Cooperative, No acute distress HEENT: Atraumatic, PERRLA, EOMI, Mucous membr. moist/pink Lungs: Clear to auscultation, Normal air movement Heart: S1S2, RRR, no thrills, no rubs, other (left chest with PPM site bandaged) Abdomen: Normal bowel sounds, Soft, No tenderness, No hepatosplenomegaly, No masses Rectal Exam: not examined Extremities: No clubbing, No cyanosis, No edema, Normal pulses, No tenderness/swelling Skin: No rashes, No breakdown, No significant lesion Neuro: Normal speech, Strength at 5/5 X4 ext, Normal tone, Sensation intact, Cranial nerves 3-12 NL, Reflexes 2+, Other (Gait not tested) Vitals Vitals Vital Signs Date Time Temp Pulse Resp B/P (MAP) Pulse Ox O2 Delivery O2 Flow Rate FiO2 12/25/19 15:07 108 20 208/107 (140) 100 Room Air 12/25/19 10:05 97.5 97.5 Labs Labs Laboratory Tests Test 12/25/19 10:20 12/25/19 12:39 White Blood Count 10.9 x10^3/uL (4.0-11.0) Red Blood Count 4.31 x10^6/uL (3.50-5.40) Hemoglobin 13.1 g/dL (12.0-15.5) Hematocrit 39.8 % (36.0-47.0) Mean Corpuscular Volume 92 fL (79-100) Mean Corpuscular Hemoglobin 30 pg (25-35) Mean Corpuscular Hemoglobin Concent 33 g/dL (31-37) Red Cell Distribution Width 14.4 % (11.5-14.5) Platelet Count 161 x10^3/uL (140-400) Neutrophils (%) (Auto) 90 % (31-73) Lymphocytes (%) (Auto) 4 % (24-48) Monocytes (%) (Auto) 6 % (0-9) Eosinophils (%) (Auto) 0 % (0-3) Basophils (%) (Auto) 0 % (0-3) Neutrophils # (Auto) 9.8 x10^3/uL (1.8-7.7) Lymphocytes # (Auto) 0.4 x10^3/uL (1.0-4.8) Monocytes # (Auto) 0.6 x10^3/uL (0.0-1.1) Eosinophils # (Auto) 0.0 x10^3/uL (0.0-0.7) Basophils # (Auto) 0.0 x10^3/uL (0.0-0.2) Segmented Neutrophils % 94 % (35-66) Band Neutrophils % 1 % (0-9) Lymphocytes % 4 % (24-48) Monocytes % 1 % (0-10) Platelet Estimate Adequate (ADEQUATE) Sodium Level 146 mmol/L (136-145) Potassium Level 3.1 mmol/L (3.5-5.1) Chloride Level 111 mmol/L (98-107) Carbon Dioxide Level 23 mmol/L (21-32) Anion Gap 12 (6-14) Blood Urea Nitrogen 22 mg/dL (7-20) Creatinine 1.0 mg/dL (0.6-1.0) Estimated GFR (Cockcroft-Gault) 63.3 BUN/Creatinine Ratio 22 (6-20) Glucose Level 104 mg/dL (70-99) Calcium Level 8.5 mg/dL (8.5-10.1) Magnesium Level 1.8 mg/dL (1.8-2.4) Total Bilirubin 0.3 mg/dL (0.2-1.0) Aspartate Amino Transf (AST/SGOT) 31 U/L (15-37) Alanine Aminotransferase (ALT/SGPT) 30 U/L (14-59) Alkaline Phosphatase 82 U/L (46-116) Creatine Kinase 105 U/L (26-192) Troponin I Quantitative 0.174 ng/mL (0.000-0.055) XE-Jfc-C-Type Natriuretic Peptide 1959 pg/mL (0-449) Total Protein 7.1 g/dL (6.4-8.2) Albumin 2.8 g/dL (3.4-5.0) Albumin/Globulin Ratio 0.7 (1.0-1.7) Urine Collection Type Unknown Urine Color Yellow Urine Clarity Clear Urine pH 6.0 (<5.0-8.0) Urine Specific [place] 1.025 (1.000-1.030) Urine Protein 30 mg/dL (NEG-TRACE) Urine Glucose (UA) Negative mg/dL (NEG) Urine Ketones (Stick) Negative mg/dL (NEG) Urine Blood Trace (NEG) Urine Nitrite Negative (NEG) Urine Bilirubin Negative (NEG) Urine Urobilinogen Dipstick 0.2 mg/dL (0.2 mg/dL) Urine Leukocyte Esterase Negative (NEG) Urine RBC Occ /HPF (0-2) Urine WBC 0 /HPF (0-4) Urine Squamous Epithelial Cells Occ /LPF Urine Bacteria 0 /HPF (0-FEW) Urine Hyaline Casts Few /HPF Urine Mucus Slight /LPF Laboratory Tests Test 12/25/19 10:20 12/25/19 12:39 White Blood Count 10.9 x10^3/uL (4.0-11.0) Red Blood Count 4.31 x10^6/uL (3.50-5.40) Hemoglobin 13.1 g/dL (12.0-15.5) Hematocrit 39.8 % (36.0-47.0) Mean Corpuscular Volume 92 fL (79-100) Mean Corpuscular Hemoglobin 30 pg (25-35) Mean Corpuscular Hemoglobin Concent 33 g/dL (31-37) Red Cell Distribution Width 14.4 % (11.5-14.5) Platelet Count 161 x10^3/uL (140-400) Neutrophils (%) (Auto) 90 % (31-73) Lymphocytes (%) (Auto) 4 % (24-48) Monocytes (%) (Auto) 6 % (0-9) Eosinophils (%) (Auto) 0 % (0-3) Basophils (%) (Auto) 0 % (0-3) Neutrophils # (Auto) 9.8 x10^3/uL (1.8-7.7) Lymphocytes # (Auto) 0.4 x10^3/uL (1.0-4.8) Monocytes # (Auto) 0.6 x10^3/uL (0.0-1.1) Eosinophils # (Auto) 0.0 x10^3/uL (0.0-0.7) Basophils # (Auto) 0.0 x10^3/uL (0.0-0.2) Segmented Neutrophils % 94 % (35-66) Band Neutrophils % 1 % (0-9) Lymphocytes % 4 % (24-48) Monocytes % 1 % (0-10) Platelet Estimate Adequate (ADEQUATE) Sodium Level 146 mmol/L (136-145) Potassium Level 3.1 mmol/L (3.5-5.1) Chloride Level 111 mmol/L (98-107) Carbon Dioxide Level 23 mmol/L (21-32) Anion Gap 12 (6-14) Blood Urea Nitrogen 22 mg/dL (7-20) Creatinine 1.0 mg/dL (0.6-1.0) Estimated GFR (Cockcroft-Gault) 63.3 BUN/Creatinine Ratio 22 (6-20) Glucose Level 104 mg/dL (70-99) Calcium Level 8.5 mg/dL (8.5-10.1) Magnesium Level 1.8 mg/dL (1.8-2.4) Total Bilirubin 0.3 mg/dL (0.2-1.0) Aspartate Amino Transf (AST/SGOT) 31 U/L (15-37) Alanine Aminotransferase (ALT/SGPT) 30 U/L (14-59) Alkaline Phosphatase 82 U/L (46-116) Creatine Kinase 105 U/L (26-192) Troponin I Quantitative 0.174 ng/mL (0.000-0.055) VC-Qvl-H-Type Natriuretic Peptide 1959 pg/mL (0-449) Total Protein 7.1 g/dL (6.4-8.2) Albumin 2.8 g/dL (3.4-5.0) Albumin/Globulin Ratio 0.7 (1.0-1.7) Urine Collection Type Unknown Urine Color Yellow Urine Clarity Clear Urine pH 6.0 (<5.0-8.0) Urine Specific [place] 1.025 (1.000-1.030) Urine Protein 30 mg/dL (NEG-TRACE) Urine Glucose (UA) Negative mg/dL (NEG) Urine Ketones (Stick) Negative mg/dL (NEG) Urine Blood Trace (NEG) Urine Nitrite Negative (NEG) Urine Bilirubin Negative (NEG) Urine Urobilinogen Dipstick 0.2 mg/dL (0.2 mg/dL) Urine Leukocyte Esterase Negative (NEG) Urine RBC Occ /HPF (0-2) Urine WBC 0 /HPF (0-4) Urine Squamous Epithelial Cells Occ /LPF Urine Bacteria 0 /HPF (0-FEW) Urine Hyaline Casts Few /HPF Urine Mucus Slight /LPF VTE Prophylaxis Ordered VTE Prophylaxis Devices: Yes VTE Pharmacological Prophylaxi: No Assessment/Plan Assessment/Plan A/P: Metabolic encephalopathy - resolved with hydration and cogentin SSS: with 15 sec pause. S/P PPM. Presently pacing tachy at 100-[address]. [address], no immediate complications. Dehydration - treated HTN - controlled Hx of colon CA with colostomy placement Likely underlying MCI or dementia noted on prior admission - light during day, cont haldol prn, add cogentin 1-2mg PRN BID Dispo - Her condition appears to be a dystonic reaction or an anxiety attack or withdrawing from benzo medication. Patient was found to be severely dehydrated, patient was given 2 mg of Cogentin IV and 1 L normal saline IV. Ok to return to SNF, no indication for admission. Advised to wearing left arm sling at SNF MASSIEL KAISER MD December 25, 2019 16:03
[2019-12-25 17:07] VITALS: BP 157/93
--- NOTE | 2019-12-27 07:05 | EKG ---
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
== END 2019-12-25 18:17 | disposition home or self-care (01) ==
LOC: ER 10:04
DX: G24.9 Dystonia, unspecified (principal); F41.9 Anxiety disorder, unspecified; E86.0 Dehydration; I10 Essential (primary) hypertension; F32.9 Major depressive disorder, single episode, unspecified; Z88.8 Allergy status to other drugs, medicaments and biological substances
CPT/HCPCS: 36415; 71045; 80053; 81001; 82550; 83735; 83880; 84484; 85007; 85025; 93005; 96361; 96374; 99285; J0515; J7030

== ENCOUNTER 2019-12-25 19:00 | Emergency (ER) | payer MEDICARE ==
[2019-12-25 17:07] VITALS: BP 157/93
[~2019-12-25 19:00] MED LIST changes: +BENZ1TAB5 PO
--- NOTE | 2019-12-25 19:56 | PHYS DOC ---
Past Medical History Past Medical History: Anxiety, Depression, Hypertension Additional Past Medical Histor: COLON CA Past Surgical History: Cancer Surgery Additional Past Surgical Histo: INTESTIONAL MESH, COLOSTOMY, defib placed 09/30 Smoking Status: Never Smoker Alcohol Use: None Drug Use: None General Adult EDM: Chief Complaint: ALTERED MENTAL STATUS HPI: HPI: Patient is a 89 year old female who [facility] due to nursing staff refusing to accept patient, despite director of audiology having accepted patient back. Patient's history and physical from previous stay has been reviewed. Additional history is not available as patient is very poor historian and unable to answer questions. [] Review of Systems: Review of Systems: Constitutional: No reported fever or chills. [] Respiratory: No reported cough or shortness of breath. [] Cardiovascular: No reported chest pain or edema. [] GI: No reported vomiting or diarrhea. [] Neurologic: Positive reported altered mental status. [] Unable to fully assess review of systems as patient is unable to answer questions. Heart Score: Risk Factors: Risk Factors: DM, Current or recent (<one month) smoker, HTN, HLP, family history of CAD, obesity. Risk Scores: Score 0 - 3: 2.5% MACE over next 6 weeks - Discharge Home Score 4 - 6: 20.3% MACE over next 6 weeks - Admit for Clinical Observation Score 7 - 10: 72.7% MACE over next 6 weeks - Early Invasive Strategies Allergies: Allergies: Allergies Coded Allergies Type Severity Reaction Last Updated Verified iodine Allergy Intermediate Itching 07/26/13 Yes Physical Exam: PE: Constitutional: Well developed, well nourished, no acute distress, non-toxic appearance. [] HENT: Normocephalic, atraumatic, bilateral external ears normal, oropharynx moist, no oral exudates, nose normal. [] Eyes: PERRLA, EOMI, conjunctiva normal, no discharge. [] Neck: Normal range of motion, no tenderness, supple. [] Cardiovascular: Mildly tachycardic rate with regular rhythm [] Lungs & Thorax: Bilateral breath sounds clear to auscultation [] Abdomen: Bowel sounds normal, soft, no tenderness. [] Skin: Warm, dry, no erythema, no rash. [] Extremities: No tenderness, no cyanosis, no clubbing, ROM intact, no edema. [] Neurologic: Awake and alert with tremor noted to left arm. [] EKG: EKG: [] Radiology/Procedures: Radiology/Procedures: [] Course & Med Decision Making: Course & Med Decision Making Pertinent Labs and Imaging studies reviewed. (See chart for details) [] Dragon Disclaimer: Dragon Disclaimer: This electronic medical record was generated, in whole or in part, using a voice recognition dictation system. Departure Departure Impression: Primary Impression: AMS (altered mental status) Qualified Codes: R41.82 - Altered mental status, unspecified Additional Impression: Dystonia Disposition: 01 HOME, SELF-CARE Condition: STABLE Referrals: KAREN WING MD (PCP) VLAD LUNA Jr. DO December 25, 2019 19:56
== END 2019-12-25 20:34 | disposition home or self-care (01) ==
LOC: ER 19:00
DX: R41.82 Altered mental status, unspecified (principal); G24.9 Dystonia, unspecified; I10 Essential (primary) hypertension; F41.9 Anxiety disorder, unspecified; F32.9 Major depressive disorder, single episode, unspecified; Z88.8 Allergy status to other drugs, medicaments and biological substances
CPT/HCPCS: 99283